=== PATIENT | female | born 1955 | race Two or more races ===

== ENCOUNTER 2025-06-16 06:30 | Day surgery (SDC) | payer OTHER ==
[2025-06-11 12:37] LABS: BASO % 0.3 % (0.1-1.2); EOS # 0.06 (0.04-0.54); EOS % 0.9 % (0.7-7.0); LYMPH # 1.08 (1.18-3.74); LYMPH % 16.8 % (19.3-53.1); MEAN PLATELET VOLUME 9.50 fl (9.4-12.4); MONO # 0.53 (0.24-0.82); MONO % 8.2 % (4.7-12.5); NEUT # 4.73 (1.56-6.13); NEUT % 73.6 % (34.0-71.1); RED CELL DISTRIBUTION WIDTH 12.7 % (11.6-14.4)
[2025-06-11 12:59] LABS: URINE APPEARANCE Clear; URINE BILIRRUBIN Negative (NEGATIVE); URINE BLOOD Negative; URINE COLOR Yellow; URINE GLUCOSE Negative (NEGATIVE); URINE KETONE Negative (NEGATIVE); URINE LEUKOCYTE Negative; URINE NITRATE Negative; URINE PROTEIN Negative (NEGATIVE); URINE UROBILINOGEN 0.2 E.U./dl
[2025-06-11 13:01] LABS: INR 1.04
[2025-06-11 13:04] LABS: URINE BACTERIA 312.9 uL (0.0-1933); URINE EPITHELIAL CELLS 23.7 uL (0.0-38.8); URINE WBC 2.9 uL (0.0-23.2)
[2025-06-11 13:08] VITALS: BP 146/90
[2025-06-11 13:15] LABS: ALT/SGPT 59.0 U/L (12-78); AST/SGOT 62.0 U/L (15-37); BILIRUBIN TOTAL 0.61 mg/dL (0.3-1.2); BUN CREA RATIO 31.0 (7.0-25.0); CREATININE SERUM 1.06 mg/dL (0.55-1.02); GFR 51.25; GLOBULINA 4.3 G/DL (2.4-3.5); GLUCOSE FASTING 96.0 mg/dL (65-100); OSMOLALITY SERUM 283.0 MOSM/KG (275-295)
[2025-06-11 13:16] LABS: URINE CAST 0.29 uL (0.0-1.40); URINE RBC 1.4 uL (0.0-20.8)
[~2025-06-16] VITALS: Ht 157.5 cm; Wt 83.9 kg
[~2025-06-16 06:30] MED LIST: HORIZANT300 MG PO; IRBESARTAN150 MG PO; LASIX20 MG PO; PROAIR RESPICL90 MCG IH; ROSUVASTATIN CA20 MG PO; SINGULAIR10 MG PO; SYNTHROID137 MCG PO; TOPROL XL50 M1 PO; TRELEGY ELLIPT1 EACH IH; ZETIA10 MG PO
[2025-06-16] MEDS ORDERED: CEFAZOLIN SODIUM 1,000 MG VIAL ONE (09:13)
[2025-06-16] MEDS ORDERED: PANTOPRAZOLE SODIUM 40 MG/VIAL VIAL ONE (09:13)
[2025-06-16] MEDS ORDERED: LIDOCAINE HCL 1%/EPINEPHRINE 20ML VIAL IJ ONE (09:57)
[2025-06-16] MEDS ORDERED: DEXAMETHASONE SODIUM PHOSPHATE 4 MG/ML VIAL ONE (10:13)
[2025-06-16] MEDS ORDERED: RACEPINEPHRINE HCL 0.5 ML AMPUL IH ONE (11:20)
[2025-06-16] MEDS ORDERED: MORPHINE SULFATE 4 MG/ML VIAL IV ONE (12:40)
[2025-06-16] MEDS ORDERED: MORPHINE SULFATE 4 MG/ML CARTRIDGE IV ONE (14:00)
[2025-06-16] MEDS ORDERED: MORPHINE SULFATE 2 MG/ML CARTRIDGE IV ONE (14:00)
== END 2025-06-16 16:00 | disposition home or self-care (01) ==
LOC: CIR.AMB 06:30
PROVIDERS: ATTEND Otolaryngology
DX: J38.1 Polyp of vocal cord and larynx (principal); J38.3 Other diseases of vocal cords; Z88.8 Allergy status to other drugs, medicaments and biological substances